=== PATIENT | female | born 1995 | race Caucasian/White ===

== ENCOUNTER 2017-06-17 21:50 | Emergency (ER) | payer BC ==
[~2017-06-17] VITALS: Ht 157.5 cm; Wt 59.0 kg
[~2017-06-17 21:50] MED LIST: CEPH500C PO; HYDR1TAB PO; IBUP-1773 PO; OXYC-12 PO
[2017-06-17] MEDS ORDERED: NS IV 1000 ML 1,000 ML IV ONE (22:09)
[2017-06-17] MEDS ORDERED: KETOROLAC 30 MG/ML VIAL IVP STA (22:09)
--- NOTE | 2017-06-17 22:09 | ED GU-Female ---
General Stated Complaint: LIGHTHEADEDNESS,HEADACHE,BLOOD/PAIN WHEN URINATING Source: patient Exam Limitations: no limitations History of Present Illness Time seen by provider: 22:04 Initial Comments Patient presents by private conveyance the ER with a chief complaint of noting some spotting red blood in her urine which on her second micturition had clots burning and what she describes as a lot of blood. Today she is been experiencing a migraine headache on the left side which she gets and typically treats with sumatriptan. She has not taken anything for today. She was also feeling for past 2 days some general malaise and decreased appetite and secondary to feeling that food sat on easily on her stomach. She denies nausea. She states that she had her last missed her period 2 weeks ago. She is on combined oral contraceptives and denies missing any doses. She has not had any abdominal pain or cramping. She feels burning when she urinates and denies discharge. She denies a personal history of kidney stones however her father had them when he was her age. Allergies and Home Medications Allergies Coded Allergies: No Known Drug Allergies (Unverified , 11/07/11) Home Medications Levonorgestrel-Ethin Estradiol 1 Each Tablet, #28 (Reported) Sumatriptan Succinate 25 Mg Tablet, #14 (Reported) Constitutional: No chills, No diaphoresis, No fever, No malaise EENTM: No ear pain, No eye pain Respiratory: No cough, No short of breath Cardiovascular: No chest pain, No edema Gastrointestinal: No abdominal pain, No constipation, No diarrhea, No nausea, No vomiting Genitourinary: see HPI, burning, denies discharge, dysuria, frequency, other ( incomplete make duration) : No (oral contraceptives) LMP: Jun 03, 2017 Musculoskeletal: No back pain, No joint pain Skin: No pruritus, No rash Psychiatric/Neurological: See HPI, Headache, Denies Numbness Past Docrnpt-Aumrzb-Nyzdwz Hx Patient Social History Alcohol Use: Occasionally Uses Recreational Drug Use: No Smoking Status: Never a Smoker Recent Foreign Travel: No Contact w/Someone Who Travel: No Respiratory Hx Respiratory Disorders: No Cardiovascular Hx Cardiac Disorders: No Neurological Hx Neurological Disorders: No Reproductive System Hx Reproductive Disorders: No Genitourinary Hx Genitourinary Disorders: Yes Gastrointestinal Hx Gastrointestinal Disorders: No Musculoskeletal Hx Musculoskeletal Disorders: Yes Endocrine Hx Endocrine Disorders: No HEENT HX ENT Disorders: No Psychosocial Hx Psychiatric Problems: No Blood Transfusions Hx Blood Disorders: No Physical Exam Vital Signs Vital Sign - Last 12Hours 06/17/17 22:11 Temp 98.7 Pulse 89 Resp 18 B/P (MAP) 135/83 Pulse Ox 100 O2 Delivery Room Air Capillary Refill : General Appearance: WD/WN, no apparent distress HEENT: PERRL/EOMI, pharynx normal Cardiovascular: normal peripheral pulses, regular rate, rhythm, no edema Respiratory: lungs clear, normal breath sounds Gastrointestinal: normal bowel sounds, non tender, soft, no organomegaly Back: normal inspection, no CVA tenderness Extremities: normal inspection, normal capillary refill Neurologic/Psychiatric: alert, oriented x 3 Skin: normal color, warm/dry Progress/Results/Core Measures Results/Orders Lab Results Laboratory Tests Test 06/17/17 22:20 Range/Units White Blood Count 13.3 H 4.3-11.0 10^3/uL Red Blood Count 4.72 4.35-5.85 10^6/uL Hemoglobin 14.2 11.5-16.0 G/DL Hematocrit 42 35-52 % Mean Corpuscular Volume 89 80-99 FL Mean Corpuscular Hemoglobin 30 25-34 PG Mean Corpuscular Hemoglobin Concent 34 32-36 G/DL Red Cell Distribution Width 12.0 10.0-14.5 % Platelet Count 279 130-400 10^3/uL Mean Platelet Volume 10.0 7.4-10.4 FL Neutrophils (%) (Auto) 72 42-75 % Lymphocytes (%) (Auto) 21 12-44 % Monocytes (%) (Auto) 6 0-12 % Eosinophils (%) (Auto) 2 0-10 % Basophils (%) (Auto) 0 0-10 % Neutrophils # (Auto) 9.5 H 1.8-7.8 X 10^3 Lymphocytes # (Auto) 2.7 1.0-4.0 X 10^3 Monocytes # (Auto) 0.8 0.0-1.0 X 10^3 Eosinophils # (Auto) 0.2 0.0-0.3 10^3/uL Basophils # (Auto) 0.0 0.0-0.1 10^3/uL Urine Color RED H Urine Clarity BLOODY H Urine pH 8 5-9 Urine Specific [place] 1.015 L 1.016-1.022 Urine Protein 3+ H NEGATIVE Urine Glucose (UA) NEGATIVE NEGATIVE Urine Ketones NEGATIVE NEGATIVE Urine Nitrite NEGATIVE NEGATIVE Urine Bilirubin NEGATIVE NEGATIVE Urine Urobilinogen NORMAL NORMAL MG/DL Urine Leukocyte Esterase 3+ H NEGATIVE Urine RBC (Auto) 5+ H NEGATIVE Urine RBC TNTC H /HPF Urine WBC 25-50 H /HPF Urine Crystals NONE /LPF Urine Bacteria MODERATE H /HPF Urine Casts NONE /LPF Urine Mucus NEGATIVE /LPF Urine Culture Indicated YES Urine Test NEGATIVE NEGATIVE Sodium Level 141 135-145 MMOL/L Potassium Level 3.8 3.6-5.0 MMOL/L Chloride Level 106 98-107 MMOL/L Carbon Dioxide Level 24 21-32 MMOL/L Anion Gap 11 5-14 MMOL/L Blood Urea Nitrogen 11 7-18 MG/DL Creatinine 0.85 0.60-1.30 MG/DL Estimat Glomerular Filtration Rate > 60 BUN/Creatinine Ratio 13 Glucose Level 107 H 70-105 MG/DL Calcium Level 9.5 8.5-10.1 MG/DL Total Bilirubin 0.3 0.1-1.0 MG/DL Aspartate Amino Transf (AST/SGOT) 17 5-34 U/L Alanine Aminotransferase (ALT/SGPT) 21 0-55 U/L Alkaline Phosphatase 60 40-136 U/L Total Protein 7.8 6.4-8.2 GM/DL Albumin 4.6 H 3.2-4.5 GM/DL My Orders Orders - JAYME SOLO Cbc With Automated Diff (06/17/17 22:09) Comprehensive Metabolic Panel (06/17/17 22:09) Hcg,Qualitative Urine (06/17/17 22:09) Ua Culture If Indicated (06/17/17 22:09) Ct Abd/Pelvis Wo(Kidney Stone) (06/17/17 22:09) Ketorolac Injection (Toradol Injection) (06/17/17 22:09) Saline Lock/Iv-Start (06/17/17 22:09) Ns Iv 1000 Ml (Sodium Chloride 0.9%) (06/17/17 22:09) Promethazine Tablet (Phenergan Tablet) (06/17/17 22:15) Promethazine Injection (Phenergan Injec (06/17/17 22:30) Urine Culture (06/17/17 22:20) Abdomen, Flat & Upright/Decub (06/17/17 23:10) Medications Given in ED Current Medications Medications Dose Ordered Sig/Christina Route Start Time Stop Time Status Last Admin Dose Admin Promethazine HCl 25 mg ONCE ONCE IVP 06/17/17 22:30 06/17/17 22:31 DC 06/17/17 22:25 25 MG Sodium Chloride 1,000 ml @ 0 mls/hr Q0M ONCE IV 06/17/17 22:09 06/17/17 22:12 DC 06/17/17 22:23 0 MLS/HR Vital Signs/I&O Vital Sign - Last 12Hours 06/17/17 06/17/17 22:11 22:24 Temp 98.7 98.7 Pulse 89 Resp 18 B/P (MAP) 135/83 Pulse Ox 100 O2 Delivery Room Air Intake and Output 06/18/17 00:00 Intake Total 1000 ml Balance 1000 ml Progress Note : Time: 22:36 Progress Note Urinalysis showing clots would make us be concerned for kidney stone or UTI with cystitis. Diagnostic Imaging Diagonstic Imaging: CT Plain Films/CT/US/NM/MRI: abdomen (pelvis without, kidney) Comments There are a few little calculi in the right kidney however no hydronephrosis had her nerves ureter or evidence of a stone in the bladder or ureter. There is some mild bladder wall thickening is nonspecific and could just be related to cystitis. Otherwise abdominal organs or unremarkable. Reviewed: Reviewed [place] Study, Reviewed by Me, Discussed w/Radiologist Diagonstic Imaging: Xray Plain Films/CT/US/NM/MRI: abdomen (KUB) Comments Unremarkable KUB with nonspecific bowel gas pattern Reviewed: Reviewed by Me Departure Impression Impression: Primary Impression: Urinary tract infection Qualified Codes: N30.01 - Acute cystitis with hematuria Disposition: HOME, SELF-CARE Condition: Stable Departure-Patient Inst. Decision time for Depature: 00:18 Referrals: NO,LOCAL PHYSICIAN (PCP) Primary Care Physician Patient Instructions: Urinary Tract Infection, Adult (DC) Add. Discharge Instructions: Drink plenty of fluids take the antibiotics 1 pill by mouth twice daily with some food. If you're having worsening symptoms such as high fever or nausea and vomiting he should return to the ER or to your primary care physician. You may have passed a very small stone is there are some residual nonobstructive stones in the right kidney but they are not posing any threat At this time. If you're having pain he should take Tylenol or Motrin as needed. You can also use a heating pad as this sometimes offers relief. Scripts Sulfamethoxazole/Trimethoprim (Bactrim Ds Tablet) 1 Each Tablet 1 EACH PO BID for 7 Days, #14 TAB 0 Refills Prov: JAYME SOLO 06/18/17 JAYME SOLO Jun 17, 2017 22:09
[2017-06-17] MEDS ORDERED: SUMA25TA4 (22:11)
[2017-06-17] MEDS ORDERED: LEVO1TAB20 (22:11)
[2017-06-17] MEDS ORDERED: PROMETHAZINE 25 MG (PHENERGAN) TAB PO ONE (22:15)
[2017-06-17 22:23] LABS: BILIRUBIN,URINE NEGATIVE (NEGATIVE); KETONES,URINE NEGATIVE (NEGATIVE); LEUKOCYTE ESTERASE ,URINE 3+ (NEGATIVE); NITRITE,URINE NEGATIVE (NEGATIVE); PH,URINE 8 (5-9); PROTEIN,URINE 3+ (NEGATIVE); UROBILINOGEN,URINE NORMAL (NORMAL)
[2017-06-17 22:30] LABS: BASOPHILS % (AUTO) 0 % (0-10); EOSINOPHILS # (AUTO) 0.2 10^3/uL (0.0-0.3); EOSINOPHILS % (AUTO) 2 % (0-10); LYMPHOCYTES # (AUTO) 2.7 X 10^3 (1.0-4.0); LYMPHOCYTES % (AUTO) 21 % (12-44); MEAN CORPUSCULAR HEMOGLOBIN 30 PG (25-34); MEAN CORPUSCULAR HGB CONC 34 G/DL (32-36); MEAN CORPUSCULAR VOLUME 89 FL (80-99); MONOCYTES # (AUTO) 0.8 X 10^3 (0.0-1.0); MONOCYTES % (AUTO) 6 % (0-12); NEUTROPHILS # (AUTO) 9.5 X 10^3 (1.8-7.8); NEUTROPHILS % (AUTO) 72 % (42-75); PLATELET COUNT 279 10^3/uL (130-400); RED BLOOD COUNT 4.72 10^6/uL (4.35-5.85); WHITE BLOOD COUNT 13.3 10^3/uL (4.3-11.0)
[2017-06-17] MEDS ORDERED: PROMETHAZINE INJ 25 MG/ML (PHENERGAN) AMP IVP ONE (22:30)
[2017-06-17 22:32] LABS: WBC,URINE 25-50 /HPF
[2017-06-17 22:46] LABS: ALANINE AMINOTRANSFERASE 21 U/L (0-55); ALBUMIN 4.6 GM/DL (3.2-4.5); ANION GAP 11 MMOL/L (5-14); ASPARTATE AMINO TRANSFERASE 17 U/L (5-34); BILIRUBIN,TOTAL 0.3 MG/DL (0.1-1.0); BLOOD UREA NITROGEN 11 MG/DL (7-18); BUN/CREATININE RATIO 13; CALCIUM 9.5 MG/DL (8.5-10.1); CARBON DIOXIDE 24 MMOL/L (21-32); CHLORIDE 106 MMOL/L (98-107); CREATININE SERUM 0.85 MG/DL (0.60-1.30); GFR ESTIMATED > 60; GLUCOSE 107 MG/DL (70-105); POTASSIUM 3.8 MMOL/L (3.6-5.0); SODIUM 141 MMOL/L (135-145); TOTAL PROTEIN 7.8 GM/DL (6.4-8.2)
[2017-06-18] MEDS ORDERED: SULF1TAB35 PO (00:20)
[2017-06-18] MEDS ORDERED: TRIM/SULFAMETH 160/800 (SEPTRA DS) TAB PO ONE (00:30)
[2017-06-18 00:36] VITALS: BP 115/74
--- NOTE | 2017-06-18 06:53 | Diagnostic Imaging Report ---
PROCEDURE: CT urinary tract, rule out kidney stone. TECHNIQUE: Multiple contiguous axial images were obtained through the abdomen and pelvis without the use of intravenous contrast. INDICATION: Abdominal pain, possible renal calculi COMPARISON STUDY: CT scan from 04/10/12. FINDINGS: Noncontrast CT scanning of the abdomen and pelvis sagittal and coronal reformats demonstrate the lung bases to be clear. The liver appears normal. The gallbladder is contracted. No duct dilatation is present. Spleen, pancreas, adrenal glands appear normal. There are 2 small adjacent calculi in the midpole of the right kidney without hydronephrosis. These measure up to 2 mm. No calculi are seen in the ureters or urinary bladder. There is diffuse thickening of the urinary bladder wall, possible cystitis. Interval appendectomy changes are present. The bowel loops appear normal. No ascites, free air or abnormal adenopathy is present. The uterus and adnexal structures appear unremarkable. The osseous structures have a normal appearance. IMPRESSION: 1. Tiny right renal calculi without obstruction or inflammation. 2. Urinary bladder gutierrez are diffusely thickened, probable cystitis. Dictated by: Dictated on workstation # [id number]
--- NOTE | 2017-06-18 07:14 | Diagnostic Imaging Report ---
INDICATION: Abdominal pain. TECHNIQUE: Supine and upright view of the abdomen 11:34 PM CORRELATION STUDY: None FINDINGS: Moderate severity fecal retention. The stomach appears to be significantly distended with retained gastric contents. Calcification left hemipelvis favoring probable phlebolith. Osseous structures unremarkable. IMPRESSION: 1. There does appear to be significant distention of the stomach with retained gastric contents as well as mild/moderate severity fecal retention. No bowel obstruction. Dictated by: Dictated on workstation # [id number]
== END 2017-06-18 00:36 | disposition home or self-care (01) ==
LOC: EDUNIT# 21:50 → ER 21:53
DX: N39.0 Urinary tract infection, site not specified (principal); Z87.39 Personal history of other diseases of the musculoskeletal system and connective tissue; Z87.442 Personal history of urinary calculi
CPT/HCPCS: 36415; 74020; 74176; 80053; 81000; 84703; 85025; 87088; 96361; 96374; 96375; 99283

== ENCOUNTER → 2019-12-01 | Outpatient (CLI) | payer BC ==
[~2019-12-01] MED LIST changes: +LEVO1TAB20; +SULF1TAB35 PO; +SUMA25TA4
--- NOTE | 2019-12-01 11:57 | Diagnostic Imaging Report ---
EXAMINATION: Magnetic resonance imaging of the right knee without intravenous contrast. DATE: December 01, 2019. COMPARISON: None. INDICATION: 24-year-old female, right knee pain. Injury hiking. TECHNIQUE: Multiplanar, multisequence noncontrast enhanced MR imaging was accomplished. FINDINGS: MENISCI: There is a tear involving the peripheral third of the medial meniscus at the level of the body/posterior horn and posterior horn, perhaps best illustrated on coronal PD sequence image 10 and adjacent sequential images. This also can be seen on sagittal PD fat saturation sequence 6 and adjacent sequential images. The lateral meniscus is intact. LIGAMENTS AND TENDONS: The anterior and posterior cruciate ligaments are intact. The medial collateral ligament is intact. The iliotibial band, mid third lateral capsular ligament, fibular collateral ligament, biceps femoris tendon, and conjoined tendon are intact. The quadriceps tendon and patella ligament are intact. JOINT: The articular cartilage surfaces are intact. There is no knee joint effusion, prominent synovitis, or intra-articular body. BONE: There is unremarkable bone marrow signal. Specifically, negative for fracture, osteomyelitis, osteonecrosis, or marrow replacing process. BURSAE AND SOFT TISSUES: No Bakers cyst. IMPRESSION: 1. Tear involving the peripheral third of the medial meniscus at the level of the body/posterior horn junction and posterior horn of the medial meniscus. 2. Intact lateral meniscus. 3. Intact anterior and posterior cruciate ligaments. Additional ligaments and tendons are intact. 4. No acute fracture or bone contusion. 5. Intact articular cartilage. No knee joint effusion. Dictated by: Dictated on workstation # [id number]
== END ==
LOC: RAD 09:54
PROVIDERS: ATTEND Nurse Practitioner
DX: S83.241A Other tear of medial meniscus, current injury, right knee, initial encounter (principal); S83.511A Sprain of anterior cruciate ligament of right knee, initial encounter; M22.41 Chondromalacia patellae, right knee; Y93.01 Activity, walking, marching and hiking
CPT/HCPCS: 73721